=== PATIENT | female | born 1985 | race Two or more races ===

== ENCOUNTER 2020-06-05 12:30 | Inpatient (IN) | payer OTHER ==
[~2020-06-05] VITALS: Ht 165.1 cm; Wt 3854.0 kg
[2020-06-12] MEDS ORDERED: PRENATAL CAPLE1 EAC1 PO (08:39)
[2020-06-12] MEDS ORDERED: FOLIC ACID20 MG PO (08:40)
== END 2020-06-15 16:23 | disposition home or self-care (01) | DRG 785 ==
LOC: OB/GYN 06-12 08:05 → O/R 06-12 08:05 → LDR 06-12 08:15 → OB/GYN 06-12 19:34
PROVIDERS: ADMIT Obstetrics & Gynecology; ATTEND Obstetrics & Gynecology
PROC: 0UT70ZZ Resection of Bilateral Fallopian Tubes, Open Approach (ICD-10-PCS; 2020-06-12)
PROC: 4A0HXFZ Measurement of Products of Conception, Cardiac Rhythm, External Approach (ICD-10-PCS; 2020-06-12)
PROC: 10D00Z1 Extraction of Products of Conception, Low, Open Approach (ICD-10-PCS; principal; 2020-06-12 08:15)
DX: O82 Encounter for cesarean delivery without indication (principal); O34.211 Maternal care for low transverse scar from previous cesarean delivery; Z3A.39 39 weeks gestation of pregnancy; Z37.0 Single live birth; Z30.2 Encounter for sterilization